=== PATIENT | female | born 2005 | race Two or more races ===

== ENCOUNTER 2025-02-04 16:10 | Emergency (ER) | payer MEDICAID ==
[~2025-02-04] VITALS: Ht 175.3 cm; Wt 52.7 kg
--- NOTE | 2025-02-04 16:33 | ED.PDOC ---
History of Present Illness HPI Comments This is a 19-year-old female who comes in with chief complaint of overdose at approximately 3:00 p.m. today. The patient was at home and stated that she did this because she wanted to teach her mother a lesson. She states that she has never overdosed in the past. She states that she has never cut herself in the past but she has had ideas of suicidal ideation in the past. Today, the patient took four tablets of ibuprofen at 200 mg each as well as Paxil four tablets 10 mg each. She states that the Paxil was prescribed to her in the past but it was now out being did. Upon arrival, the patient had an Accu-Chek of 98. She is able to answer all questions appropriately. She states that she is depressed and she really only wanted to teach her mother a lesson. Time Seen by MD: 16:27 Reviewed Notes: Nurses Notes, Assistant Sales Manager Notes, Medications, Allergies (No allergies to medications) Allergies: Coded Allergies: NO KNOWN ALLERGIES (Unverified , 02/04/25) Information Source: Patient, Emergency Med Personnel Mode of Arrival: EMS Severity: Moderate Timing: Hours Duration: Since onset Prehospital treatment: None Associated signs and symptoms Generalized weakness, overdose, depression Past Medical History PAST MEDICAL HISTORY: Depression Surgical History: Denies all surgeries SHANK RANDER History: No Pertinent SHANK RANDER History Family History Family History: No family hx of Cancer, No family hx of DM, No family hx of Heart tristin Social History Smoker: Non-Smoker Alcohol: Denies ETOH Use Drugs: Denies Drug Use Lives In: Home Constitutional: denies: chills, diaphoresis, fatigue, fever, malaise, sweats, weakness, others EENTM: denies: blurred vision, double vision, ear bleeding, ear discharge, ear drainage, ear pain, ear ringing, eye pain, eye redness, hearing loss, mouth pain, mouth swelling, nasal discharge, nose bleeding, nose congestion, nose pain, photophobia, tearing, throat pain, throat swelling, voice changes, others Respiratory: denies: cough, hemoptysis, orthopnea, SOB at rest, shortness of breath, SOB with excertion, stridor, wheezing, others Cardiovascular: denies: chest pain, dizzy spells, diaphoresis, Dyspnea on exertion, edema, irregular heart beat, left arm pain, lightheadedness, palpitations, PND, syncope, others Gastrointestinal: denies: abdomen distended, abdominal pain, blood streaked bowels, constipated, diarrhea, dysphagia, difficulty swallowing, hematemesis, melena, nausea, poor appetite, poor fluid intake, rectal bleeding, rectal pain, vomiting, others Genitourinary: denies: abnormal vagina bleeding, burning, dyspareunia, dysuria, flank pain, frequency, hematuria, incontinence, pain, , vagina discharge, urgency, others Neurological: denies: dizziness, fainting, headache, left sided numbness, left sided weakness, numbness, paresthesia, pre-existing deficit, right sided numbness, right sided weakness, seizure, speech problems, tingling, tremors, weakness, others Musculoskeletal: denies: back pain, gout, joint pain, joint swelling, muscle pain, muscle stiffness, neck pain, others Integumetry: denies: bruises, change in color, change in hair/nails, dryness, laceration, lesions, lumps, rash, wounds, others Allergic/Immunocompromised: denies: Difficulty Healing, Frequent Infections, Hives, Itching, others Hematologic/Lymphatic: denies: anemia, blood clots, easy bleeding, easy bruising, swollen glands, others Endocrine: denies: excessive hunger, excessive sweating, excessive thirst, excessive urination, flushing, intolerance to cold, intolerance to heat, unexplained weight gain, unexplained weight loss, others Psychiatric: reports: depression; denies: anxiety, bipolar disorder, hopeless, panic disorder, schizophrenia, sleepless, suicidal, others Physical Exam General Appearance: Moderate Distress HEENT: Normal ENT Inspection, Pharynx Normal, TMs Normal Neck: Full Range of Motion, Non-Tender, Normal, Normal Inspection Respiratory: Chest Non-Tender, Lungs Clear, No Accessory Muscle Use, No Respiratory Distress, Normal Breath Sounds Cardiovascular: No Edema, No JVD, No Murmur, No Gallop, Normal Peripheral Pulses, Regular Rate/Rhythm Breast Exam: Deferred Gastrointestinal: No Organomegaly, Non Tender, No Pulsatile Mass, Normal Bowel Sounds, Soft Genitalia: Deferred Pelvic: Deferred Rectal: Deferred Extremities: No calf tenderness, Normal capillary refill, Normal inspection, Normal range of motion, Non-tender, No pedal edema Musculoskeletal : Apperance: Normal Neurologic: Alert, stripe marker II-XII nml as Tested, No Motor Deficits, No Sensory Deficits, Other (Depressed mood) Cerebellar Function: Normal Reflexes: Normal Skin: Dry, Normal Color, Warm Lymphatic: No Adenopathy Was a procedure done? Was a procedure done?: No Differential Dx Considerations may include: Overdose, suicidal ideation, generalized weakness X-Ray, Labs, Meds, VS Vital Signs Date Time Temp Pulse Resp B/P (MAP) Pulse Ox O2 Delivery O2 Flow Rate FiO2 02/04/25 16:20 98.0 86 18 113/76 (88) 99 98.0 Lab Test 02/04/25 16:40 Range/Units White Blood Count 6.2 4.4-10.8 10^3/uL Red Blood Count 4.62 4.0-5.20 10^6/uL Hemoglobin 13.8 12.2-16.2 g/dL Hematocrit 40.4 36.0-46.0 % Mean Corpuscular Volume 87.5 80.0-100.0 fL Mean Corpuscular Hemoglobin 29.8 28.0-32.0 pg Mean Corpuscular Hemoglobin Concent 34.1 32.0-36.0 g/dL Red Cell Distribution Width 13.1 11.8-14.3 % Platelet Count 317 140-450 10^3/uL Mean Platelet Volume 7.0 6.9-10.8 fL Neutrophils (%) (Auto) 64.2 37.0-80.0 % Lymphocytes (%) (Auto) 26.0 10.0-50.0 % Monocytes (%) (Auto) 8.1 0.0-12.0 % Eosinophils (%) (Auto) 1.1 0.0-7.0 % Basophils (%) (Auto) 0.6 0.0-2.0 % Neutrophils # (Auto) 4.0 1.6-8.6 10 ^3/uL Lymphocytes # (Auto) 1.6 0.4-5.4 10 ^3/uL Monocytes # (Auto) 0.5 0-1.3 10 ^3/uL Eosinophils # (Auto) 0.1 0-0.8 10 ^3/uL Basophils # (Auto) 0 0-0.2 10 ^3/uL Nucleated Red Blood Cells 0.0 % Sodium Level 140 136-145 mmol/L Potassium Level 3.6 3.5-5.1 mmol/L Chloride Level 107 98-107 mmol/L Carbon Dioxide Level 24 20-31 mmol/L Anion Gap 9 5-15 Blood Urea Nitrogen 9 9-23 mg/dL Creatinine 0.92 0.550-1.02 mg/dL Glomerular Filtration Rate Calc 92 >90 mL/min BUN/Creatinine Ratio 9.8 L 10.0-20.0 Serum Glucose 112 H 74-106 mg/dL Calcium Level 10.2 8.7-10.4 mg/dL Salicylates Level < 3.0 -30 mg/dL Acetaminophen Level < 2.0 L 10.0-20.0 UG/ML Plasma/Serum Blood Alcohol 4.3 <10 mg/dL The patient will be signed out to Dr. Marquez We did contact poison control and they did give us guidance on managing this patient. We did order the labs and currently are observing the patient for between 6-8 hours. Following this, the patient will be medically cleared and the patient can be evaluated by the psychiatrist Time of 1ST Reevaluation: 16:31 Reevaluation 1ST: Unchanged Patient Education/Counseling: Diagnosis, Treatment, Prognosis Family Education/Counseling: No Family Present Departure 1 Departure Time of Disposition: 17:23 Impression: Primary Impression: Overdose Qualified Codes: T50.902A - Poisoning by unspecified drugs, medicaments and biological substances, intentional self-harm, initial encounter Additional Impression: Major depression Qualified Codes: F32.1 - Major depressive disorder, single episode, moderate Disposition: 30 STILL A PATIENT Condition: Fair Critical Care Note Critical Care Time?: No Stability Stability form required: Yes Unstable for transfer: Telemetry monitoring (Telemetry monitoring required), ED Physician Assesment (Clinical assesment) Heart Score Heart Score: Heart Score Response (Comments) Value History N/A 0 EKG N/A 0 Age N/A 0 Risk Factors N/A 0 Troponin N/A 0 Total 0 MARIA DEL ROSARIO KWON MD Feb 04, 2025 16:33
[2025-02-04 16:53] LABS: Basophils # (auto) 0 10 ^3/uL (0-0.2); Basophils % (auto) 0.6 % (0.0-2.0); Eosinophils # (auto) 0.1 10 ^3/uL (0-0.8); Eosinophils % (auto) 1.1 % (0.0-7.0); Hematocrit 40.4 % (36.0-46.0); Hemoglobin 13.8 g/dL (12.2-16.2); Lymphocytes # (auto) 1.6 10 ^3/uL (0.4-5.4); Mean Corpuscular Hemoglobin 29.8 pg (28.0-32.0); Mean Corpuscular Hgb Conc. 34.1 g/dL (32.0-36.0); Mean Corpuscular Volume 87.5 fL (80.0-100.0); Monocytes # (auto) 0.5 10 ^3/uL (0-1.3); Monocytes % (auto) 8.1 % (0.0-12.0); Neutrophils % (auto) 64.2 % (37.0-80.0); Platelet Count (auto) 317 10^3/uL (140-450); Red Blood Cells 4.62 10^6/uL (4.0-5.20); Red Cell Distribution Width 13.1 % (11.8-14.3); White Blood Cell 6.2 10^3/uL (4.4-10.8)
[2025-02-04 16:59] LABS: Chloride 107 mmol/L (98-107); Potassium 3.6 mmol/L (3.5-5.1); Sodium 140 mmol/L (136-145)
[2025-02-04 17:00] LABS: Anion Gap 9 (5-15); Calcium 10.2 mg/dL (8.7-10.4); Carbon Dioxide 24 mmol/L (20-31)
[2025-02-04 17:05] LABS: BUN/Creatinine Ratio 9.8 (10.0-20.0); Blood Alcohol 4.3 mg/dL (<10)
[2025-02-04 17:06] LABS: Blood Urea Nitrogen 9 mg/dL (9-23); Glucose 112 mg/dL (74-106)
[2025-02-04 17:10] LABS: Acetaminophen < 2.0 UG/ML (10.0-20.0); Salicylate < 3.0 mg/dL (-30)
[2025-02-04 20:00] VITALS: BP 110/81; PULSE 76; RESP 16; TEMP 98.1; O2SAT 99
[2025-02-04 21:08] LABS: Amphetamine Screen, Urine Neg (NEGATIVE); Barbiturate Scree,Urine Neg (NEGATIVE); Benzodiazephine Screen, Urine Neg (NEGATIVE); Cannabinoid Screen, Urine Neg (NEGATIVE); Cocaine Screen, Urine Neg (NEGATIVE); Opiate Scree,Urine Neg (NEGATIVE); Phencyclidine Screen, Urine Neg (NEGATIVE)
--- NOTE | 2025-02-04 23:27 | DVHINCON2 ---
Date of Service if different f: Feb 04, 2025 Time of Service: 23:01 Consult Consult Note PSYCHIATRY ED NEW CONSULT HPI: 19 yo AA F pt with PPH of depression presents to ED BIBA for safety, psychiatric stabilization, and possible med initiation/optimization in setting of intentional drug OD of 4 tabs of paxil 10 mg qd and 4 tabs of 200 mg ibuprofen. Psychiatry consulted for safety evaluation and recommendations in context of current presentation Per pt, reports hx of chronic depression, earlier today "i was overly emotional after getting into verbal argument with my mom and i took bunch of pills to prove a point, teach my mom a lesson". Pt adamantly denies ingestion as suicide attempt/gesture or intention to self harm. Pt admits ingestion, although intentional, was due to difficulty controlling emotions and unhealthy coping mechanism related to argument. Pt now expresses remorse/regret for ingestion I am not going to do it again Currently denies depressed mood, hopelessness, helplessness, isolation, negative thoughts, or anhedonia. Denies anxiety/panic/OCD/PTSD symptoms. Also denies AVH/paranoia/catatonic/perceptual disturbances/personality changes. Sleep/appetite/energy/conc relatively WNL. Adamantly denies SI/HI. No overt manic, psychotic, MDD, cognitive, dissociative, panic, OCD, PTSD, or somatic symptoms noted. Overall appears future oriented/goal directed. Denies acute psychosocial stressors Pt currently does not have active outpt MH services established at this time. Currently not on any psychotropic agents for over a year, prior psych med tri als include paxil briefly for depression in 2022 Denies ETOH, THC or IDU Never , no children, unemployed, lives with parent/aunt, in college doing "okay" academically, some support system noted (immediate family) Unknown trauma hx. Denies FH of psych hospitalizations, suicide attempts, or completed suicides No acute medical/chronic pain issues, hx of seizures/TBI, or recent head injuries, NKDA Denies hx of SI/SIB/SA/PSG or prior psych hospitalizations/5150 holds. Denies history of violence, unprovoked aggression, or assaultive behaviors. Denies recent hx of impulsivity, attention seeking behaviors, anger outbursts, emotio nal dysregulation, mood reactivity, or engaging in risky behaviors. Denies any legal problems Currently denies SI/HI/AVH. Does not have access to firearms. Identifies self/family as PPF. No acute safety concerns noted during encounter MSE: General Appearance/Behavior: Alert and awake; appears stated age, fair grooming and hygiene; calm and cooperative, fair eye contact, no PMA/PMR Speech: coherent, rrr Thought Process: linear, logical, appears goal-directed Thought Content: Abnormal Thoughts and Perceptions: denies dissociative symptoms Homicidality / Violent Thoughts: adamantly denies HI Suicidality: adamantly denies SI Hallucinations: denies AVTH Delusions: denies paranoia, persecutory, or grandiose delusions Obsessions /compulsions: None Judgment and Insight: improved/fair Mood & Affect: "okay" with mood-congruent, appropriate Orientation: oriented to person, place, time Attention/Concentration: appears intact Cognition: grossly intact Assessment: 19 yo AA F pt with PPH of depression presents to ED BIBA for safety, psychiatric stabilization, and possible med initiation/optimization in setting of intentional drug OD of 4 tabs of paxil 10 mg qd and 4 tabs of 200 mg ibuprofen Currently denies SI/HI/AVH. Linear and appears future oriented/goal directed in thought. Identifies several protective factors including a desire to live, family support, and higher education. No hx of SI/SA/SIB or prior psych hospitalizations is reassuring. Pt medically cleared Pts presenting MH symptoms appear more secondary to difficulty controlling emotions and ineffective coping mechanisms in context of acute r/s strain with parent (see HPI) with minimal interference in daily functioning. Collateral reports from family member (cousin at bedside) also support that pt has not made any recent/ongoing suicidal statements Presently, pt does not show any signs of immediate danger to self or others that would necessitate a higher level of care. Thus, pt does not meet criteria for 5150 or involuntary inpatient psych admission as is not DTS/DTO or GD although offered voluntary inpt psychiatric hospitalization but pt declined. Also declined further ED observation/reevaluation. No acute safety concerns noted. Acute suicide risk appears nonexistent to relatively low Pt currently does not have psychiatrist/therapist out in community although interested in seeking MH resources prior to d/c for psychotherapy Currently not on any psychotropics. 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 Impulse disorder unspecified Plan: Does not warrant involuntary inpatient psychiatric hospitalization or 5150 hold at this time No acute safety concerns Pt can be safely discharged back to current residence Psychotropic med initiation not clinically indicated at this arlene Supportive tx provided, discussed safety plan with pt Encouraged mindfulness techniques (reading, walking, meditation, journaling, exercise, deep breathing) during times of stress Would benefit from establishing community MH services for psychotx please provide pt MH resources prior to discharge per pts request for psychotherapy Instructed pt to call/text [phone] or return to ED if MH symptoms worsen or new onset SI/HI upon discharge Pt verbalized understanding and is receptive to above tx plan This case was discussed with ED nurse/provider and all parties in agreement with above tx plan Jimi Prado MD Plan discussed with: Patient JIMI PRADO MD Feb 04, 2025 23:27
--- NOTE | 2025-02-04 23:30 | ED.PDOC ---
Departure 1 Departure Time of Disposition: 23:30 (Patient was medically cleared and then evaluated by psychiatry who cleared patient for discharge. We will discharge patient home with outpatient follow up) Impression: Primary Impression: Overdose Qualified Codes: T50.902A - Poisoning by unspecified drugs, medicaments and biological substances, intentional self-harm, initial encounter Additional Impression: Major depression Qualified Codes: F32.1 - Major depressive disorder, single episode, moderate Disposition: 01 HOME / SELF CARE / HOMELESS Condition: Stable Additional Instructions: It is important to continue to take your regular medications and follow up with the regular doctors. If your symptoms worsen or you have any other concerns please return to the emergency room. Discharged With: Self SASHA SEVERINO MD Feb 04, 2025 23:30
== END 2025-02-04 23:54 | disposition home or self-care (01) ==
LOC: ER 16:10 → EDBD 16:10 → ER 23:54
DX: T50.901A Poisoning by unspecified drugs, medicaments and biological substances, accidental (unintentional), initial encounter (principal); F32.1 Major depressive disorder, single episode, moderate; Z79.899 Other long term (current) drug therapy; Y92.89 Other specified places as the place of occurrence of the external cause
CPT/HCPCS: 36415; 80048; 80307; 80320; 80329; 81025; 85025